=== PATIENT | male | born 1955 | race Caucasian/White ===

== ENCOUNTER 2022-02-03 15:21 | Inpatient (IN) | payer BC ==
[2022-02-03] MEDS ORDERED: Apixaban 5 MG Tab PO ONE (16:02)
[2022-02-03] MEDS ORDERED: Diltiazem 25 MG/5 ML SDV IVPUSH ONE ×3 (16:02→16:25)
[2022-02-03] MEDS ORDERED: Diltiazem 100 MG in Sodium Chloride 0.9% 100 ML IV SCH ×2 (16:15→18:15)
[2022-02-03] MEDS ORDERED: Diltiazem 50 MG/10 ML SDV ONE (16:21)
[2022-02-03] MEDS ORDERED: Diltiazem 50 MG/10 ML SDV IVPUSH ONE (16:30)
[2022-02-03] MEDS ORDERED: Acetaminophen 325 MG Tab PO PRN (18:06)
[2022-02-03] MEDS ORDERED: Ondansetron 4 MG/2 ML SDV IV PRN (18:06)
[2022-02-03] MEDS ORDERED: Docusate Sodium 100 MG Cap PO PRN (18:06)
[2022-02-03] MEDS ORDERED: Ondansetron 4 MG Tab.DIS PO PRN (18:06)
[2022-02-03] MEDS ORDERED: Sodium Chloride 0.9% 10 ML Syringe FLUSH PRN (18:08)
[2022-02-03] MEDS ORDERED: Acetaminophen/HYDROcodone 325-5 MG Tab PO PRN (18:11)
[2022-02-03] MEDS: Diltiazem IR 60 MG Tab PO SCH (20:20)
[2022-02-03] MEDS: Metoprolol Succinate 50 MG Tab.ER PO SCH (21:24)
[2022-02-03] MEDS: Apixaban 5 MG Tab PO SCH (21:26)
[2022-02-04] MEDS: Diltiazem IR 60 MG Tab PO SCH ×2 (01:05→06:17)
[2022-02-04] MEDS ORDERED: Levothyroxine 50 MCG Tab PO SCH (06:00)
[2022-02-04] MEDS: Apixaban 5 MG Tab PO SCH (08:58)
[2022-02-04] MEDS: Metoprolol Succinate 50 MG Tab.ER PO SCH (08:58)
[2022-02-04] MEDS ORDERED: Diltiazem 120 MG Cap.CD PO SCH (09:00)
[2022-02-04] MEDS ORDERED: atorvaSTATin 20 MG Tab PO SCH (09:00)
== END 2022-02-04 10:04 | disposition home or self-care (01) | DRG 201 ==
LOC: JD.ED 15:21 → JD.ICU 18:27
PROVIDERS: ADMIT Hospitalist; ATTEND Hospitalist
DX: I48.91 Unspecified atrial fibrillation (principal); E03.9 Hypothyroidism, unspecified; I10 Essential (primary) hypertension; H54.7 Unspecified visual loss; E78.00 Pure hypercholesterolemia, unspecified; I25.10 Atherosclerotic heart disease of native coronary artery without angina pectoris; Z91.018 Allergy to other foods; Z79.890 Hormone replacement therapy; Z79.899 Other long term (current) drug therapy
CPT/HCPCS: 36415; 71045; 71045-26; 80048; 80053; 83735; 84443; 84484; 85025; 85610; 85730; 93005; 93306; 96365; 96366; 99285-25; A9270-GY; J3490